=== PATIENT | female | born 1945 | race Caucasian/White ===

== ENCOUNTER 2017-10-27 08:22 | Day surgery (SDC) | payer OTHER ==
[2017-10-27 08:55] VITALS: BMI 25.8
--- NOTE | 2017-10-27 10:36 | CP.SDSHP ---
Same Day Surgery H & P - History Proposed Procedure: EGD Pre-Op Diagnosis: SEE NOTES - Previous Medical/Surgical History Cardiac: Hypertension Endocrine/Metabolic: Other Pain: 4.Moderate Pain - Allergies Allergies: Allergies No Known Allergies Allergy (Verified 10/27/17 08:54) - Current Medications Current Medications: N - Physical Exam General Appearance: N Vital Signs: Vital Signs 10/27/17 09:31 Temperature 97.3 F L Pulse Rate 73 Respiratory 19 Rate Blood Pressure 129/69 O2 Sat by Pulse 97 Oximetry Mental Status: Alert & Oriented x3 Neuro: WNL Heart: Other Lungs: WNL GI: Other - {Optional Preform as Required} Breast: WNL Abdomen: Other Rectal: Other Integument: WNL : WNL Ortho: Other ENT: WNL - Impression Pt. Evaluated Today:Candidate for Anesthesia & Procedure: Yes - Date & Time Time: 10:36 Short Stay Discharge - Short Stay Discharge Admitting Diagnosis/Reason for Visit: DYSPEPSIA / DYSPHAGIA Disposition: HOME/ ROUTINE
[2017-10-27] MEDS ORDERED: Pantoprazole 40 mg EC Tab PO STA (10:37)
[2017-10-27 10:55] VITALS: TEMP 98.2
[2017-10-27 11:05] VITALS: O2SAT 100
[2017-10-27] MEDS ORDERED: Propofol 10 mg/ml Inj (20 ML) ONE (11:11)
[2017-10-27 12:20] VITALS: BP 125/72; PULSE 66; RESP 16
== END 2017-10-27 12:11 | disposition home or self-care (01) ==
LOC: C.ENDO 08:22
PROVIDERS: ATTEND Specialist
DX: R13.14 Dysphagia, pharyngoesophageal phase (principal); K30 Functional dyspepsia; K44.9 Diaphragmatic hernia without obstruction or gangrene; K21.0 Gastro-esophageal reflux disease with esophagitis
CPT/HCPCS: 43239; 88305; 88342; J2704